=== PATIENT | female | born 1985 | race Caucasian/White ===

== ENCOUNTER 2016-12-29 07:54 | Emergency (ER) | payer BC ==
[2016-12-29] MEDS ORDERED: Ondansetron 4 MG Tab.DIS ONE (08:26)
--- NOTE | 2016-12-29 08:51 | EDM.PDOC ---
ED HPI GENERAL MEDICAL PROBLEM - General Time Seen by Provider: 12/29/16 08:00 Source of Information: Reports: Patient History Limitations: Reports: No limitations - History of Present Illness INITIAL COMMENTS - FREE TEXT/NARRATIVE: According to patient she claims that she woke up in the morning today and since has bee having sever vertigo . She feels like the whole room spins all the time and gets worse when she moves. She does complain of nausea and has had one episodes of vomiting in the emergency room. No headache, no ringing in the ears , no tingling or numbness. Pt claims she has had cold for the past week, which seems to be improving. No fever or chills. Onset: today Onset Date: 12/29/16 Onset Time: 06:00 Improves with: Reports: Rest Worsens with: Reports: Movement Associated Symptoms: Reports: nausea/vomiting. Denies: confusion, chest pain, cough, fever/chills, headaches, seizure, syncope ED ROS GENERAL - Review of Systems Review Of Systems: See Below Constitutional: Denies: fever, chills HEENT: Reports: Rhinitis, Sinus problem, Vertigo. Denies: Ear discharge, Ear pain, Throat pain, Throat swelling, Vision change Respiratory: Denies: Shortness of Breath, Cough, Sputum Cardiovascular: Denies: Chest pain, Lightheadedness GI/Abdominal: Denies: Abdominal pain, Nausea, Vomiting : Denies: discharge, dysuria Musculoskeletal: Denies: joint pain, joint swelling Skin: Denies: pruritis, rash Neurological: Reports: Dizziness. Denies: Confusion, Headache, Numbness, Syncope, Tingling, Tremors, Trouble Speaking, Difficulty Walking, Weakness ED EXAM, GENERAL - Physical Exam Exam: See Below Exam Limited By: No limitations General Appearance: alert, WD/WN, mild distress Eye Exam: bilateral eye: EOMI, PERRL Ears: normal external exam, normal canal, hearing grossly normal, normal TMs Ear Exam: bilateral ear: auricle normal, canal normal, TM normal, TM bulging Nose: normal inspection, normal mucosa, no blood, nasal drainage (clear discharge) Throat/Mouth: Normal inspection, Normal lips, Normal teeth, Normal gums, Normal oropharynx, Normal voice, No airway compromise Head: atraumatic, normocephalic, other (Examination of head tilting test done: amrlon does have elicitable vertiogo in left lateral tilt of the head. vertigo lasts for 10 secs, dissappears when eye closed and opened.) Neck: normal inspection, supple, non-tender, full range of motion Respiratory/Chest: no respiratory distress, lungs clear, normal breath sounds, no accessory muscle use, chest non-tender Cardiovascular: normal peripheral pulses, regular rate, rhythm, no edema, no gallop, no JVD, no murmur, no rub Neurological: alert, oriented, CN II-XII intact, normal cognition, normal gait, normal reflexes, no motor/sensory deficits Course - Vital Signs Text/Narrative:: Pt reassured that she has viral labrynthitis, from her recent URI. reassured that it will resolve in few days gradually. plenty of fluids. Avoid driving until vertigo resolves. She did receive Sublingual Zofran for nausea. I have started her on meclizine 25mg 3 times daily for 5 days. Return to emergency room is symptoms worsen or linger on for more than 5 days. - Orders/Labs/Meds Meds: Medications Discontinued Medications Generic Name Dose Route Start Last Admin Trade Name Freq PRN Reason Stop Dose Admin Ondansetron HCl Confirm 12/29/16 08:26 12/29/16 08:26 Zofran Odt Administered 12/29/16 08:27 4 mg Dose Administration 4 mg .ROUTE .STK-MED ONE Departure - Departure Time of Disposition: 08:30 Disposition: Home, Self-Care 01 Condition: fair Clinical Impression: Labyrinthine dysfunction Instructions: Labyrinthitis Referrals: Kareem Beckford MD [Primary Care Provider] - Additional Instructions: Do not drive while experiencing dizziness Take meclazine 25 mg three times a day until resolves. - Problem List & Annotations (1) Labyrinthine dysfunction SNOMED Code(s): 2328749 Code(s): H83.2X9 - LABYRINTHINE DYSFUNCTION, UNSPECIFIED EAR Status: Acute - Problem List Review Problem List Initiated/Reviewed/Updated: Yes - Assessment/Plan Assessment:: Acute viral labyrinthitis Plan: Pt reassured that she has viral labrynthitis, from her recent URI. reassured that it will resolve in few days gradually. plenty of fluids. Avoid driving until vertigo resolves. She did receive Sublingual Zofran for nausea. I have started her on meclizine 25mg 3 times daily for 5 days. Return to emergency room is symptoms worsen or linger on for more than 5 days.
== END 2016-12-29 08:36 | disposition home or self-care (01) ==
LOC: LB.ED 07:54
DX: H83.2X9 Labyrinthine dysfunction, unspecified ear (principal)
CPT/HCPCS: 99283; A9270

== ENCOUNTER 2019-12-08 11:57 | Emergency (ER) | payer BC ==
[2019-12-08] MEDS ORDERED: Cyclobenzaprine 10 MG Tab ONE (12:00)
[2019-12-08] MEDS ORDERED: Acetaminophen/HYDROcodone 325-5 MG Tab ONE (12:00)
[2019-12-08] MEDS ORDERED: Naproxen 500 MG Tab ONE (12:00)
[2019-12-08] MEDS: Ketorolac 60 MG/2 ML SDV IM ONE (12:30)
[2019-12-08] MEDS ORDERED: Ketorolac 60 MG/2 ML SDV ONE (12:32)
[2019-12-08] MEDS ORDERED: Diazepam 5 MG Tab ONE (12:33)
[2019-12-08] MEDS: Diazepam 5 MG Tab PO ONE (12:35)
--- NOTE | 2019-12-08 13:34 | EDM.PDOC ---
ED HPI GENERAL MEDICAL PROBLEM - General Chief Complaint: General Stated Complaint: BACK PAIN Time Seen by Provider: 12/08/19 12:00 Source of Information: Reports: Patient History Limitations: Reports: No Limitations - History of Present Illness INITIAL COMMENTS - FREE TEXT/NARRATIVE: This patient presents to the ED for evaluation of back pain. She states she was playing with her children last evening on the floor and felt a "tweak" in her back when she got up. She states the pain was not initially too bad but work her at about 2400 and she took some ibuprofen for it. she was able to sleep but the pain was much worse when she woke up this morning and she reports having trouble walking. She denies incontinence of urine or stool and denies numbness or tingling in her feet but does state she has some pain in her upper thighs. She denies other concerns or complaints. Onset: Gradual Onset Date: 12/07/19 Onset Time: 20:00 Duration: Getting Worse Location: Reports: Back, Radiates to (thighs) Quality: Reports: Ache Severity: Moderate Improves with: Reports: None Worsens with: Reports: None Associated Symptoms: Reports: No Other Symptoms Past Medical History - Past Health History Medical/Surgical History: Denies Medical/Surgical History Social & Family History - Tobacco Use Smoking Status *Q: Never Smoker Second Hand Smoke Exposure: No ED ROS GENERAL - Review of Systems Review Of Systems: Comprehensive ROS is negative, except as noted in HPI. ED EXAM, GENERAL - Physical Exam Exam: See Below Exam Limited By: No Limitations General Appearance: Alert, WD/WN, No Apparent Distress Eye Exam: Bilateral Eye: PERRL Ears: Normal External Exam Nose: Normal Inspection Throat/Mouth: Normal Inspection Head: Atraumatic, Normocephalic Neck: Normal Inspection, Full Range of Motion Respiratory/Chest: No Respiratory Distress, Lungs Clear, Normal Breath Sounds Back Exam: Normal Inspection, Decreased Range of Motion (related to pain), Muscle Spasm, Paraspinal Tenderness (L3-L5) Extremities: Normal Inspection, Normal Range of Motion, No Pedal Edema, Normal Capillary Refill Neurological: Alert, Oriented Skin Exam: Warm, Dry, Intact, Normal Color, No Rash Course - Vital Signs Last Recorded V/S: Last Vital Signs Temp 36.8 C 12/08/19 12:11 Pulse 104 H 12/08/19 12:11 Resp 16 12/08/19 12:11 BP 118/78 12/08/19 12:11 Pulse Ox 99 12/08/19 12:11 - Orders/Labs/Meds Meds: Medications Discontinued Medications Generic Name Dose Route Start Last Admin Trade Name Veronica PRN Reason Stop Dose Admin Diazepam 5 mg 12/08/19 12:22 12/08/19 12:35 Valium. PO 12/08/19 12:23 5 mg ONETIME ONE Administration Diazepam Confirm 12/08/19 12:33 Valium. Administered 12/08/19 12:34 Dose 5 mg .ROUTE .STK-MED ONE Ketorolac Tromethamine 60 mg 12/08/19 12:22 12/08/19 12:30 Toradol IM 12/08/19 12:23 60 mg ONETIME ONE Administration Ketorolac Tromethamine Confirm 12/08/19 12:32 Toradol Administered 12/08/19 12:33 Dose 60 mg .ROUTE .STK-MED ONE - Re-Assessments/Exams Free Text/Narrative Re-Assessment/Exam: 12/08/19 13:36 This patient presents for evaluation of back pain and radicular symptoms. They have a history of a similar event of back pain in the past but states that this episode is worse. The pain has improved with interventions in the RF/ The patient did not sustain any trauma, therefore x-rays are not necessary due to the low likelihood of fracture or subluxation. Advanced imaging with CT/MRI is not indicated at this time, but may be indicated in the future if symptoms fail to resolve. Nor is there any indication for consultation with neurosurgery or orthopedic spinal surgeon. The patient has not had a fever, saddle/perineal anesthesia, bilateral foot numbness, or bowel or bladder dysfunction. There is no clinical evidence of cauda equina syndrome, discitis, spinal/epidural space hematoma or epidural abscess. The neurological exam is normal, with the exception of the dermatomal symptoms noted herein. The patient was advised that radiculopathy often takes significant time to resolve, and that follow up with primary care, neurology and/or neurosurgery will be indicated if symptoms do not improve. The patient will be discharged with pain medications and muscle relaxers to use as directed. No heavy lifting, bending or twisting. Return if increasing pain, muscular weakness, or bowel or bladder dysfunction. Departure - Departure Time of Disposition: 13:40 Disposition: Home, Self-Care 01 Condition: Good Clinical Impression: Lumbar strain - Discharge Information Referrals: PCP,None [Primary Care Provider] - Sepsis Event Note - Evaluation Sepsis Screening Result: No Definite Risk - Focused Exam Vital Signs: Vital Signs Temp Pulse Resp BP Pulse Ox 12/08/19 12:11 36.8 C 104 H 16 118/78 99 Date Exam was Performed: 12/08/19 Time Exam was Performed: 13:28
== END 2019-12-08 13:48 | disposition home or self-care (01) ==
LOC: LB.ED 11:57
DX: S39.012A Strain of muscle, fascia and tendon of lower back, initial encounter (principal); X58.XXXA Exposure to other specified factors, initial encounter
CPT/HCPCS: 96372; 99282; 99283; A9270-GY; J1885